=== PATIENT | female | born 1945 | race Caucasian/White ===

== ENCOUNTER 2017-05-09 09:52 | Inpatient (IN) | payer MEDICARE, BC ==
[2017-05-09] VITALS (8 sets, daily range): BP systolic 136–178; BP diastolic 72–98
[~2017-05-09] VITALS: Ht 160 cm; Wt 103.1 kg
--- NOTE | ~2017-05-09 | CON ---
[place], [place] REPORT OF CONSULTATION NAME[id number] UNIT #: [id number] ROOM: 502 DOCTOR: EDWARD RODRÍGUEZ MD BIRTHDATE: [birth year] DOS: 05/10/2017 HISTORY OF PRESENT ILLNESS: A 72-year-old patient who presented with multiple issues among which was constipation and stool impaction. The patient has been taking oxycodone for pain management q.i.d. This is the remedy for her pain management of left hip open reduction fracture issues that has been addressed in the recent past. The patient has been nauseated as well. The patient was digitally disimpacted and since this morning she has had 2 bowel movements. However, a panel of blood work was done. Lactic acid 1.3. CBC: White blood cell 10, H and H of 13 and 40. Comprehensive metabolic panel, hypokalemia was addressed. Liver function test, alkaline phosphatase of 155, BMP of 2300 was noticed. INR of 1.1. Chest x-ray, no pneumonia. CT scan of the abdomen, nonspecific inflammation suggestive of colitis of mild degree in colon. CBC differential, white blood cell 12 again, platelets 520. Comprehensive metabolic again was reassessed. Potassium of 3.2 has been addressed. PAST MEDICAL HISTORY: Associated with left hip fracture, breast CA, psoriasis, congestive heart failure, ETOH dependency of drinking 6 beers per day at least at a soft confession. PAST SURGICAL HISTORY: Cholecystectomy, tonsillectomy, hip fracture and repair. SOCIAL HISTORY: Stopped smoking 20 years ago; however, drinking at least 6 beers per day. FAMILY HISTORY: Noncontributory. ALLERGIES: To no known medications. MEDICATIONS: Medication list has been reviewed, thiamine, folic acid, lisinopril, Coreg 3.125 mg p.o. b.i.d. REVIEW OF SYSTEMS: HEENT: Denies double vision, blurred vision. RESPIRATORY: Denies shortness of breath. CARDIOVASCULAR: Denies chest pain. DIGESTIVE SYSTEM: As identified above, nausea at the present time constipation. PHYSICAL EXAMINATION: VITAL SIGNS: Stable, comfortable, with some nausea. HEENT: Head normocephalic, nontraumatic. Mouth and buccal mucosa benign. NECK: Supple, no thyromegaly. CHEST: Symmetric anatomy, equal expansion. No wheeze. No rhonchi. HEART: Normal sinus rhythm, no gallop, no murmur. ABDOMEN: Soft, no hepato-organomegaly. Nonspecific tenderness. Bowel sounds present. EXTREMITIES: No cyanosis, no pedal edema. NEUROLOGIC: Alert, oriented to time, place and person. IMPRESSION: [place], [place] REPORT OF CONSULTATION NAME: MARCELA ZUNIGA UNIT #: [id number] ROOM: 502 DOCTOR: EDWARD RODRÍGUEZ MD BIRTHDATE: [birth year] 1. Constipation secondary to excessive oxycodone, which she is taking for pain management of hip fracture and repair. 2. Elevation of alkaline phosphatase, most likely secondary to excessive ETOH consumption daily. Other adjunctive diagnoses: Hypokalemia that has been addressed. Nausea which is going to be addressed with dose of Reglan. She has been receiving Phenergan, a dose of Reglan is going to be given. Congestive heart failure, which is under monitor. History of breast CA and psoriasis which is known and has been addressed. PLAN AND DISCUSSION: PPI is going to be on board and I have told her that we owe her a colonoscopy when she is in frame of mind to have it done and that would be complimented in addition to the endoscopy for her issues of epigastric distress, nausea. PLAN AND DISCUSSION: Otherwise supportive management and if she responds to Reglan and if she tolerates without side effects, then we will chose a regimen for management. EDWARD RODRÍGUEZ MD CM:CONSTR:REPORT OF CONSULTATION 1646 05/11/17 0552 interface
[~2017-05-09 09:52] MED LIST: B-1100 M1 PO; BENADRYL ALLERG25 M5 PO; BIAXIN500 MG PO; COREG CR10 MG PO; COREG3.125 MG PO; DIPHENHYDRAM50 MG/M1 PO; KCL PO; LASIX20 MG PO; LISINOPRIL5 MG PO; MACROBID100 M1 PO; MEDROL DOSEPAK4 MG PO; MOTRIN800 MG PO; NATURE'S BLEND F1 MG PO; NORCO 10-325 T1 EACH PO; PHENERGAN25 M3 PO; POTASSIUM CHLO20 ME4 PO; VITAMIN B-11 TAB PO; ZESTRIL,PRINIVIL5 MG PO
[2017-05-09 10:38] LABS: BASO # 0.1 10*3/uL (0.0-0.1); BASO % 0.7 % (0.0-1.0); EOS # 0.1 10*3/uL (0.0-0.4); EOS % 1.1 % (1.0-4.0); HEMATOCRIT 41.4 % (37.0-47.0); HEMOGLOBIN 13.6 g/dl (12.0-16.0); LYMPH # 1.5 10*3/uL (1.3-4.4); LYMPH % 14.8 % (27.0-41.0); MEAN CELL VOLUME 92.8 fl (81.0-99.0); MEAN CORPUSCULAR HGB 30.5 pg (27.0-31.0); MEAN CORPUSCULAR HGB CONC 32.9 g/dl (33.0-37.0); MEAN PLATELET VOLUME 9.7 fl (9.6-12.3); MONO # 0.8 10*3/uL (0.1-1.0); MONO % 7.9 % (3.0-9.0); NEUT # 7.6 10*3/uL (2.3-7.9); NEUT % 75.1 % (47.0-73.0); PLATELET COUNT AUTOMATED 531 10*3/uL (130-400); RED BLOOD COUNT 4.46 10*6/uL (4.10-5.10); RED CELL DISTRI WIDTH 12.5 % (0-14.5); WHITE BLOOD COUNT 10.1 10*3/uL (4.8-10.8)
[2017-05-09 10:49] LABS: ACT PARTIAL THROMBO TIME 24.6 SECONDS (20.8-31.5); INTERNATIONAL NORM RATIO 1.1 (2.0-3.5)
[2017-05-09 10:53] LABS: ALBUMIN 3.5 gm/dl (3.1-4.5); ALKALINE PHOSPHATASE 155 U/L (45-117); BUN 8 mg/dl (7-24); CHLORIDE 103 mmol/L (98-107); CKMB 0.7 ng/ml (0.5-3.6); CPK 39 U/L (26-192); CREATININE 0.63 mg/dL (0.55-1.02); LIPASE 129 U/L (73-393); MAGNESIUM 1.9 mg/dL (1.5-2.1); POTASSIUM 3.4 mmol/L (3.5-5.1); SGOT/AST 18 IU/L (3-35); SGPT/ALT 20 U/L (12-78); SODIUM 137 mmol/L (136-145)
[2017-05-09 10:55] LABS: TROPONIN I < 0.015 ng/ml (<0.045)
--- NOTE | 2017-05-09 11:26 | NUR ---
PATIENT REFUSED PERCOCET PER DR RUSSELL. DOCUMENTED IN EMAR SUCH.
--- NOTE | 2017-05-09 12:45 | NUR ---
PATIENT ASSISTED TO BEDSIDE COMMODE AT THIS TIME.
--- NOTE | 2017-05-09 12:55 | NUR ---
PATIENT THRASHING AROUND THE BED STATING SHE IS HAVING SEVERE PAIN, MADE DR. RUSSELL AWARE OF THIS SITUATION. ANNA WEI
--- NOTE | 2017-05-09 13:30 | NUR ---
PATIENT CONTINUES TO NOT BE ABLE TO MOVE HER BOWELS, PATIENT STATES THAT SHE FEELS IF SHE NEEDS TO MOVE HER BOWELS BUT IS NOT ABLE TO DO SO, STATES THAT SHE JUST FEELS LIKE SHE HAS A LOT OF PRESSURE IN HER RECTUM AND HAS A BURNING SENSATION IN HER RECTU, SKIN IS PINK, WARM, AND DRY, RESPIRATIONS ARE EASY AND NONLABORED, CALL LIGHT IN REACH OF THE PATIENT, CONTINUING TO MONITOR THE PATIENT. ANNA WEI
--- NOTE | 2017-05-09 14:20 | NUR ---
PATIENT STATES THAT SHE HAS HAD SIGNIFICANT IMPROVEMENT IN HER PAIN AT THIS TIME, STATES THAT THE PAIN COMES AND GOES, STATES THAT THE MOMENT HER PAIN IS A 7/10, SKIN IS PINK, WARM, AND DRY, RESPIRATIONS ARE EASY AND NONLABORED, PATIENT IS RESTING IN BED, CALL LIGHT IN REACH OF THE PATIENT, CONTINUING TO MONITOR THE PATIENT. ANNA WEI
--- NOTE | 2017-05-09 14:50 | NUR ---
PATIENT STILL HAS BEEN UNABLE TO MOVE HER BOWELS AND HAVE A GOOD BOWEL MOVEMENT, PATIENT HAS CONSTANT DRAINAGE OF LIGHT BROWN STOOL. ANNA SIERRA
--- NOTE | 2017-05-09 15:40 | NUR ---
Time: 1539 A 72 year old FEMALE admitted to 5E under services of MAYANK CREWS DO, Pt. arrived via bed from ER. Chief complaint: CONSTIPATION. MARISABEL DUNN
--- NOTE | 2017-05-09 15:41 | NUR ---
PATIENT TAKEN TO ROOM 502-2 BY EPHRAIM SCHMID. ERIBERTORN
--- NOTE | 2017-05-09 20:05 | NUR ---
MEDICATED WITH PRN TYLENOL ORDERED FOR C/O A HEADACHE
[2017-05-09] MEDS ORDERED: CALCIUM 500 +1 EAC1 PO (20:09)
[2017-05-09] MEDS ORDERED: PEPCID20 MG PO (20:10)
[2017-05-09] MEDS ORDERED: ZOFRAN4 MG PO (20:11)
[2017-05-09] MEDS ORDERED: ZINC-220220 MG PO (20:11)
[2017-05-09] MEDS ORDERED: VITAMIN D5000 UNIT PO (20:12)
--- NOTE | 2017-05-09 20:12 | NUR ---
MED REC UPDATED VIA LIST FROM PHARMACY
--- NOTE | 2017-05-09 20:30 | NUR ---
RESTING IN BED. RESPIRATIONS EASY. LUNGS DIMINISHED, CLEAR. PULSE OX 99% RA. ABD SOFT WITH HYPOACTIVE BOWEL SOUNDS. PATIENT C/O RECTAL SORENESS AND BURNING, CREAM APPLIED. IV FLUIDS INFUSING PER ORDER. CALL LIGHT WITHIN REACH.
--- NOTE | 2017-05-09 21:15 | NUR ---
PATIENT ATTEMPTING TO MOVE HER BOWELS, ASSISTED TO AND FROM BSC MULTIPLE TIMES. MINIMAL RESULTS FROM EARLIER LAXATIVES. MAG CITRATE REMAINS ON BEDSIDE TABLE. PATIENT ENCOURAGED TO DRINK TO WHICH SHE REPLIES "I KNOW, I WILL." WILL MONITOR
--- NOTE | 2017-05-09 22:50 | NUR ---
PATIENT HAS YET TO DRINK MAG CITRATE. PATIENT ENCOURAGED TO WHICH SHE STATES THAT SHE IS NAUSEOUS. MEDICATED WITH ZOFRAN IV TO ASSIST WITH NAUSEA. ALSO RECEIVED RESTORIL AT THIS TIME TO ASSIST WITH SLEEP
--- NOTE | 2017-05-09 23:15 | NUR ---
PATIENT INCONT OF SMALL AMOUNT BROWN LIQUID STOOL. PATIENT AND LINENS CHANGED. BRIEF PLACED AT PATIENT REQUEST
--- NOTE | 2017-05-09 23:30 | NUR ---
PATIENT REFUSING TO DRINK MAG CITRATE. EDUCATED REGARDING IMPORTANCE OF CONSUMING LAXATIVE D/T CT FINDINGS. CONTINUES TO REFUSE STATING THAT SHE IS NAUSEOUS DESPITE EARLIER ZOFRAN
[2017-05-10] VITALS: BP 158/78
--- NOTE | 2017-05-10 00:30 | NUR ---
EARLIER MEDS APPEAR EFFECTIVE. RETING WITH EYES CLOSED. RESPIRATIONS EASY. VSS. IV FLUIDS MAINTAINED. CALL LIGHT WITHIN REACH
--- NOTE | 2017-05-10 06:00 | NUR ---
SLEPT THROUGHOUT NIGHT. AWAKE THIS AM, ASSISTED TO BSC. PATIENT HAVING LIQUID STOOLS, NO FORMED STOOL. PATIENT C/O PRESSURE. MAG CITRATE REMAINS AT BEDSIDE BUT PATIENT REFUSING TO DRINK. IV FLUIDS MAINTAINED. CALL LIGHT WITHIN REACH
--- NOTE | 2017-05-10 06:00 | NUR ---
PATIENT C/O RECTUM BEING "SORE" AND "BURNING". WOULD SHE BENEFIT FROM CALAZINE CREAM?
--- NOTE | 2017-05-10 06:25 | NUR ---
PATIENT C/O NAUSEA. 20 CC EMESIS YELLOW BILE NOTED. MEDICATED WITH ZOFRAN PER PRN ORDER. WILL MONITOR
[2017-05-10 07:13] LABS: BASO # 0.1 10*3/uL (0.0-0.1); BASO % 0.4 % (0.0-1.0); EOS # 0.1 10*3/uL (0.0-0.4); EOS % 0.7 % (1.0-4.0); HEMATOCRIT 40.2 % (37.0-47.0); HEMOGLOBIN 13.3 g/dl (12.0-16.0); MEAN CELL VOLUME 91.6 fl (81.0-99.0); MEAN CORPUSCULAR HGB 30.3 pg (27.0-31.0); MEAN CORPUSCULAR HGB CONC 33.1 g/dl (33.0-37.0); MONO % 8.3 % (3.0-9.0); NEUT # 9.2 10*3/uL (2.3-7.9); NEUT % 74.2 % (47.0-73.0); PLATELET COUNT AUTOMATED 525 10*3/uL (130-400); RED BLOOD COUNT 4.39 10*6/uL (4.10-5.10); RED CELL DISTRI WIDTH 12.6 % (0-14.5); WHITE BLOOD COUNT 12.4 10*3/uL (4.8-10.8)
--- NOTE | 2017-05-10 07:30 | NUR ---
assumed care of pt at this time, pt sitting up in bed alert and oriented no s/s of distress call light with in reach
[2017-05-10 07:34] LABS: ALBUMIN 3.1 gm/dl (3.1-4.5); ALKALINE PHOSPHATASE 127 U/L (45-117); CHLORIDE 106 mmol/L (98-107); MAGNESIUM 2.1 mg/dL (1.5-2.1); PHOSPHOROUS 2.9 mg/dL (2.5-4.9); POTASSIUM 3.2 mmol/L (3.5-5.1); SGOT/AST 14 IU/L (3-35); SGPT/ALT 15 U/L (12-78); SODIUM 136 mmol/L (136-145)
[2017-05-10 07:37] LABS: BUN 8 mg/dl (7-24); TOTAL PROTEIN 6.9 gm/dL (6.4-8.2)
[2017-05-10 07:51] LABS: ACT PARTIAL THROMBO TIME 25.2 SECONDS (20.8-31.5); INTERNATIONAL NORM RATIO 1.1 (2.0-3.5)
[2017-05-10 08:00] VITALS: BP 184/90
--- NOTE | 2017-05-10 10:00 | NUR ---
CALL PLACED TO DR RODRÍGUEZ FOR CONSULT PER ORDER FROM DR RUSSELL, DR RODRÍGUEZ STATES THAT A DIGITAL EXAM NEEDS PREFORMED AND IF IMPACTED TO REMOVE, UPDATED DR RUSSELL, AND ASSISTED DR RUSSELL WITH REMOVING IMPACTED STOOL, DR RUSSELL REMOVED LG AMOUNT OF STOOL PT TOLERATES WELL.
--- NOTE | 2017-05-10 10:34 | NUR ---
ADMINISTERED PHENERGAN PER 0RDERS FOR NAUSEA/VOMITING, WILL MONITOR EFFECTS
--- NOTE | 2017-05-10 11:34 | NUR ---
PT RESTING IN BED WITH EYES CLOSED NO FURTHER VOMITING NOTED, PT STATES THAT SHE STILL FEELS A LITTLE NAUSEOUS
[2017-05-10 12:00] VITALS: BP 166/80
[2017-05-10 16:00] VITALS: BP 189/98
--- NOTE | 2017-05-10 16:51 | NUR ---
IV started right forearm with #24 angiocath after 2 attempts. The IV site was prepped with Chloraprep. Heparin lock attached. Sterile dressing applied. Patient tolerated precedure well. Procedure performed according to [facility] policy & procedure. DOLLY LUZ
--- NOTE | 2017-05-10 16:54 | NUR ---
DR RODRÍGUEZ HERE TO SEE PT. DTR HERE AT BEDSIDE
[2017-05-10 18:00] VITALS: BP 168/72
--- NOTE | 2017-05-10 20:30 | NUR ---
PT REQUESTED PRN SLEEPING PILL, AND WAS GIVEN COREG WITH SLEEPING PILL TO NOT DISTURB LATER AT 10 REQUESTED PER PT.
--- NOTE | 2017-05-10 20:57 | NUR ---
RESTING IN BED WITH EYES CLOSED. RESPIRATIONS EASY. LUNGS DIMINISHED, CLEAR. PULSE OX 99% RA. ABD SOFT WITH HYPOACTIVE BOWEL SOUNDS. MEDICATED WITH ZOFRAN IV PER PRN ORDER FOR C/O NAUSEA. IV FLUIDS INFUSING PER ORDER. CALL LIGHT WITHIN REACH. WILL MONITOR
--- NOTE | 2017-05-10 22:00 | NUR ---
PT SLEEPING. SLEEPING PILL AFFECTIVE. WILL CONTINUE TO MONITOR.
--- NOTE | 2017-05-10 23:00 | NUR ---
MEDS APPEAR EFFECTIVE. SLEEPING. RESPIRATIONS EASY. IV FLUIDS MAINTAINED. CALL LIGHT WITHIN REACH
[2017-05-11] VITALS: BP 160/90
--- NOTE | 2017-05-11 01:30 | NUR ---
PT SLEEPING. WILL CONTINUE TO MONITOR.
--- NOTE | 2017-05-11 06:00 | NUR ---
SLEPT THROUGHOUT NIGHT WITH NO DISTRESS NOTED. RESPIRATIONS EASY. IV FLUIDS MAINTAINED. CALL LIGHT WITHIN REACH. NO VOICED COMPLAINTS THIS SHIFT
[2017-05-11 06:06] LABS: BASO # 0.1 10*3/uL (0.0-0.1); BASO % 0.4 % (0.0-1.0); EOS # 0.1 10*3/uL (0.0-0.4); EOS % 0.8 % (1.0-4.0); HEMATOCRIT 39.4 % (37.0-47.0); HEMOGLOBIN 13.1 g/dl (12.0-16.0); LYMPH # 1.5 10*3/uL (1.3-4.4); LYMPH % 11.5 % (27.0-41.0); MEAN CELL VOLUME 90.8 fl (81.0-99.0); MEAN CORPUSCULAR HGB 30.2 pg (27.0-31.0); MEAN CORPUSCULAR HGB CONC 33.2 g/dl (33.0-37.0); MEAN PLATELET VOLUME 10.1 fl (9.6-12.3); MONO # 1.2 10*3/uL (0.1-1.0); MONO % 8.8 % (3.0-9.0); NEUT # 10.3 10*3/uL (2.3-7.9); NEUT % 77.9 % (47.0-73.0); PLATELET COUNT AUTOMATED 533 10*3/uL (130-400); RED BLOOD COUNT 4.34 10*6/uL (4.10-5.10); RED CELL DISTRI WIDTH 12.5 % (0-14.5); WHITE BLOOD COUNT 13.2 10*3/uL (4.8-10.8)
[2017-05-11 06:11] LABS: BUN 5 mg/dl (7-24); CHLORIDE 98 mmol/L (98-107); CREATININE 0.44 mg/dL (0.55-1.02); MAGNESIUM 1.7 mg/dL (1.5-2.1); PHOSPHOROUS 1.7 mg/dL (2.5-4.9); POTASSIUM 2.8 mmol/L (3.5-5.1); SODIUM 132 mmol/L (136-145)
--- NOTE | 2017-05-11 06:50 | NUR ---
K 2.8. PATIENT HAS NOT TOLERATED ORAL K OR K-RUN THAT PAST [address] LORA CONTACTED, NEW ORDERS RECEIVED
[2017-05-11 08:00] VITALS: BP 178/90
[2017-05-11 12:00] VITALS: BP 180/94
--- NOTE | 2017-05-11 12:00 | NUR ---
ATTEMPTED TO ADMINISTER PO POTASSIUM PATIENT STATES SHE CAN NOT TOLERATE THEM. CUT PILLS INTO /, PATIENT STATES SHE WILL TAKE THEM AT HER PACE. STATES "I DOUBT I CAN TAKE THEM AT ALL" CONTINUED TO ENCOURAGE TO TAKE THESE PILLS AND THE IMPORTANCE OF POTASSIUM LEVEL.
--- NOTE | 2017-05-11 14:30 | NUR ---
PATIENT WAS GIVEN MAG CITRATE AND ENCOURAGED TO DRINK. PATIENT HAS NOT ATTEMPTED. STATES SHE CANT STAND THE DRINK AND IT MAKES HER SICK.
[2017-05-11 16:00] VITALS: BP 186/106
--- NOTE | 2017-05-11 18:55 | NUR ---
PATIENT STILL HAS NOT DRANK MAG CITRATE.
[2017-05-11 20:00] VITALS: BP 174/85
[2017-05-12] VITALS: BP 159/88
--- NOTE | 2017-05-12 00:55 | NUR ---
PATIENT MEDICATED WITH RESTORIL AT 0001 FOR COMPLAINTS OF INSOMNIA WITH EFFECTIVE RESULTS NOTED. RESTING IN BED WITH EYES CLOSED AT THIS TIME. NO SIGNS OR SYMPTOMS OF DISTRESS NOTED. WILL CONTINUE TO MONITOR. CALL LIGHT IN REACH.
[2017-05-12 06:34] LABS: BASO % 0.3 % (0.0-1.0); EOS # 0.2 10*3/uL (0.0-0.4); EOS % 1.3 % (1.0-4.0); HEMATOCRIT 42.2 % (37.0-47.0); HEMOGLOBIN 14.2 g/dl (12.0-16.0); LYMPH # 1.7 10*3/uL (1.3-4.4); MEAN CELL VOLUME 91.3 fl (81.0-99.0); MEAN CORPUSCULAR HGB 30.7 pg (27.0-31.0); MEAN CORPUSCULAR HGB CONC 33.6 g/dl (33.0-37.0); MEAN PLATELET VOLUME 9.9 fl (9.6-12.3); MONO # 1.4 10*3/uL (0.1-1.0); MONO % 11.4 % (3.0-9.0); NEUT # 9.3 10*3/uL (2.3-7.9); NEUT % 73.4 % (47.0-73.0); PLATELET COUNT AUTOMATED 559 10*3/uL (130-400); RED BLOOD COUNT 4.62 10*6/uL (4.10-5.10); RED CELL DISTRI WIDTH 12.4 % (0-14.5); WHITE BLOOD COUNT 12.7 10*3/uL (4.8-10.8)
[2017-05-12 07:06] LABS: BUN 3 mg/dl (7-24); CHLORIDE 95 mmol/L (98-107); CREATININE 0.48 mg/dL (0.55-1.02); PHOSPHOROUS 1.9 mg/dL (2.5-4.9); POTASSIUM 3.5 mmol/L (3.5-5.1); SODIUM 130 mmol/L (136-145)
[2017-05-12 08:00] VITALS: BP 154/97
--- NOTE | 2017-05-12 08:30 | NUR ---
[employer] in to talk to patient. Patient states lives at [address] with HER . There are 13 steps in the home. Physician: DR NORTH IN [place] Pharmacy: [facility] IN [facility] Home health services: NONE Patient's level of ADLs: INDEPENDENT Patient has working utilities: YES DME: [facility] Follow-up physician's appointment after d/c: WILL BE MADE PRIOR TO DC Does patient want to access PORTAL?: Discharge plan HOME. MYRTLE VELASQUEZ
[2017-05-12 09:41] LABS: BILIRUBIN NEGATIVE (NEGATIVE); BLOOD TRACE-LYSED (NEGATIVE); CLARITY CLEAR (CLEAR); COLOR YELLOW (YELLOW); GLUCOSE NEGATIVE (NEGATIVE); KETONE 1+ (NEGATIVE); LEUKO ESTERASE NEGATIVE (NEGATIVE); NITRITE NEGATIVE (NEGATIVE); PH 5.5 (5.0-9.0); SPECIFIC GRAVITY 1.015 (1.005-1.030); UROBILINOGEN 0.2 E.U./dl (0.2-1.0)
[2017-05-12 09:50] LABS: BACTERIA TRACE; EPITHELIAL CELLS 31-40
[2017-05-12] MEDS ORDERED: CARVEDILOL6.25 MG PO (10:48)
[2017-05-12] MEDS ORDERED: FLAGYL500 MG PO (10:50)
[2017-05-12] MEDS ORDERED: CONSTULOSE10 GM/151 PO (10:50)
[2017-05-12] MEDS ORDERED: CIPRO500 MG PO (10:50)
--- NOTE | 2017-05-12 11:30 | NUR ---
Discharge instructions reviewed with patient/family. Patient receptive and verbalizes understanding. Follow-up care arranged. Written instructions given to patient/family. MICHAEL ANTONIO
== END 2017-05-12 11:30 | disposition home or self-care (01) | DRG 372 ==
LOC: ED 09:52 → EDHOLD 14:35 → 5E 14:35
PROVIDERS: Emergency Medicine; Family Medicine; ADMIT Internal Medicine
DX: A04.9 Bacterial intestinal infection, unspecified (principal); I50.22 Chronic systolic (congestive) heart failure; C50.911 Malignant neoplasm of unspecified site of right female breast; I11.0 Hypertensive heart disease with heart failure; E87.1 Hypo-osmolality and hyponatremia; E87.6 Hypokalemia; T40.2X5A Adverse effect of other opioids, initial encounter; K44.9 Diaphragmatic hernia without obstruction or gangrene; K59.00 Constipation, unspecified; F10.20 Alcohol dependence, uncomplicated; L40.9 Psoriasis, unspecified; Z79.899 Other long term (current) drug therapy; Z87.440 Personal history of urinary (tract) infections; Z90.49 Acquired absence of other specified parts of digestive tract; Z87.891 Personal history of nicotine dependence; Z72.89 Other problems related to lifestyle; Z81.8 Family history of other mental and behavioral disorders; Z80.1 Family history of malignant neoplasm of trachea, bronchus and lung; Z87.81 Personal history of (healed) traumatic fracture

== ENCOUNTER → 2017-06-12 | Outpatient (CLI) | payer MEDICARE, BC ==
[~2017-06-12] MED LIST changes: +CALCIUM 500 +1 EAC1 PO; +CARVEDILOL6.25 MG PO; +CIPRO500 MG PO; +CONSTULOSE10 GM/151 PO; +FLAGYL500 MG PO; +PEPCID20 MG PO; +VITAMIN D5000 UNIT PO; +ZINC-220220 MG PO; +ZOFRAN4 MG PO
[2017-06-12 16:50] LABS: ALBUMIN 3.1 gm/dl (3.1-4.5); ALKALINE PHOSPHATASE 149 U/L (45-117); BUN 5 mg/dl (7-24); CHLORIDE 101 mmol/L (98-107); CREATININE 0.65 mg/dL (0.55-1.02); POTASSIUM 4.6 mmol/L (3.5-5.1); SGOT/AST 17 IU/L (3-35); SGPT/ALT 19 U/L (12-78); SODIUM 135 mmol/L (136-145); TOTAL PROTEIN 7.2 gm/dL (6.4-8.2)
== END | disposition home or self-care (01) ==
LOC: LAB 16:01
PROVIDERS: Internal Medicine
DX: E87.1 Hypo-osmolality and hyponatremia (principal); K59.03 Drug induced constipation

== ENCOUNTER → 2017-10-15 | Outpatient (CLI) | payer MEDICARE, BC ==
[2017-10-15 13:10] LABS: BUN 4 mg/dl (7-24); CHLORIDE 98 mmol/L (98-107); CHOLESTEROL 336 mg/dL (<200); CREATININE 0.58 mg/dL (0.55-1.02); HDL CHOLESTEROL 117 mg/dl (40-60); LDL CHOLESTEROL 189 mg/dL (9-159); POTASSIUM 4.2 mmol/L (3.5-5.1); SODIUM 133 mmol/L (136-145); TRIGLYCERIDES 149 mg/dl (<150); VLDL CHOLESTEROL 30 mg/dL (6-40)
== END | disposition home or self-care (01) ==
LOC: LAB 12:10
PROVIDERS: Specialist
DX: I50.22 Chronic systolic (congestive) heart failure (principal)

== ENCOUNTER → 2018-04-06 | Outpatient (CLI) | payer MEDICARE, BC ==
[2018-04-06 13:03] LABS: ALBUMIN 3.8 gm/dl (3.1-4.5); BILIRUBIN, DIRECT 0.2 mg/dL (0.0-0.2)
== END | disposition home or self-care (01) ==
LOC: LAB 11:50
PROVIDERS: Specialist
DX: I50.9 Heart failure, unspecified (principal); E78.5 Hyperlipidemia, unspecified

== ENCOUNTER 2018-10-06 21:04 | Inpatient (IN) | payer MEDICARE, BC ==
[~2018-10-06] VITALS: Ht 160 cm; Wt 60.4 kg
--- NOTE | ~2018-10-06 | EKG ---
[place], [place] ELECTROCARDIOGRAM REPORT NAME: MARCELA ZUNIGA UNIT #: [id number] ROOM: 502 DOCTOR: EPIPHANY DRAFT REPORT BIRTHDATE: [birth year] [facility] Test Date: 2018-10-06 Test Time: 21:32:13 Pat Name: MARCELA ZUNIGA Department: ER Room: 502 Gender: F [employer] Operator: Kathy Andersen : 1945 Requested By: VANESSA BRAUN Order Number: [id number] Reading MD: Cornell Posada MD Measurements Intervals [place] Rate: 82 P: 42 MD: 198 QRS: -47 QRSD: 125 T: 78 QT: 431 QTc: 504 Interpretive Statements Sinus arrhythmia Left bundle branch block Electronically Signed On 10-07-2018 17:24:35 PST by Cornell Posada MD CM:EKGRPT:ELECTROCARDIOGRAM REPORT 31 1724 VANESSA BRAUN MD EPIPHANY DRAFT REPORT VANESSA BRAUN MD
[2018-10-06 21:06] VITALS: BP 184/105
[2018-10-06 21:52] LABS: BASO # 0.1 10*3/uL (0.0-0.1); BASO % 0.4 % (0.0-1.0); EOS # 0.1 10*3/uL (0.0-0.4); EOS % 0.3 % (1.0-4.0); HEMATOCRIT 37.8 % (37.0-47.0); HEMOGLOBIN 13.5 g/dl (12.0-16.0); LYMPH # 1.4 10*3/uL (1.3-4.4); LYMPH % 7.7 % (27.0-41.0); MEAN CELL VOLUME 91.7 fl (81.0-99.0); MEAN CORPUSCULAR HGB 32.8 pg (27.0-31.0); MEAN CORPUSCULAR HGB CONC 35.7 g/dl (33.0-37.0); MEAN PLATELET VOLUME 8.9 fl (9.6-12.3); MONO # 1.1 10*3/uL (0.1-1.0); MONO % 6.1 % (3.0-9.0); NEUT # 15.2 10*3/uL (2.3-7.9); NEUT % 84.9 % (47.0-73.0); PLATELET COUNT AUTOMATED 347 10*3/uL (130-400); RED BLOOD COUNT 4.12 10*6/uL (4.10-5.10); RED CELL DISTRI WIDTH 11.5 % (0-14.5)
[2018-10-06 22:07] LABS: ALKALINE PHOSPHATASE 64 U/L (45-117); BUN 10 mg/dl (7-24); CHLORIDE 98 mmol/L (98-107); CREATININE 0.76 mg/dL (0.55-1.02); LIPASE 88 U/L (73-393); POTASSIUM 3.7 mmol/L (3.5-5.1); SGOT/AST 19 IU/L (3-35); SGPT/ALT 24 U/L (12-78); SODIUM 132 mmol/L (136-145); TOTAL PROTEIN 8.1 gm/dL (6.4-8.2)
[2018-10-06 22:08] LABS: TROPONIN I < 0.015 ng/ml (<0.045)
[2018-10-06 22:17] LABS: ACT PARTIAL THROMBO TIME 23.1 SECONDS (20.8-31.5)
[2018-10-07] VITALS (10 sets, daily range): BP systolic 137–166; BP diastolic 67–88
[2018-10-07 00:53] LABS: BILIRUBIN NEGATIVE (NEGATIVE); BLOOD NEGATIVE (NEGATIVE); CLARITY CLEAR (CLEAR); COLOR YELLOW (YELLOW); GLUCOSE 1+ (NEGATIVE); KETONE 1+ (NEGATIVE); LEUKO ESTERASE TRACE (NEGATIVE); NITRITE NEGATIVE (NEGATIVE); UROBILINOGEN 0.2 E.U./dl (0.2-1.0)
[2018-10-07 01:08] LABS: BACTERIA TRACE
[2018-10-07 05:59] LABS: ALBUMIN 3.4 gm/dl (3.1-4.5); ALKALINE PHOSPHATASE 58 U/L (45-117); BUN 7 mg/dl (7-24); CHLORIDE 101 mmol/L (98-107); CHOLESTEROL 236 mg/dL (<200); CREATININE 0.65 mg/dL (0.55-1.02); FREE T4 1.14 ng/dl (0.76-1.46); HDL CHOLESTEROL 113 mg/dl (40-60); LDL CHOLESTEROL 109 mg/dL (9-159); PHOSPHOROUS 3.1 mg/dL (2.5-4.9); POTASSIUM 3.8 mmol/L (3.5-5.1); SGOT/AST 15 IU/L (3-35); SGPT/ALT 19 U/L (12-78); SODIUM 134 mmol/L (136-145); TOTAL PROTEIN 7.3 gm/dL (6.4-8.2); TRIGLYCERIDES 68 mg/dl (<150); VLDL CHOLESTEROL 14 mg/dL (6-40)
[2018-10-07 06:34] LABS: BASO # 0.1 10*3/uL (0.0-0.1); BASO % 0.3 % (0.0-1.0); HEMATOCRIT 38.5 % (37.0-47.0); HEMOGLOBIN 12.8 g/dl (12.0-16.0); LYMPH # 0.6 10*3/uL (1.3-4.4); LYMPH % 3.1 % (27.0-41.0); MEAN CORPUSCULAR HGB 31.8 pg (27.0-31.0); MEAN CORPUSCULAR HGB CONC 33.2 g/dl (33.0-37.0); MEAN PLATELET VOLUME 9.5 fl (9.6-12.3); MONO # 1.5 10*3/uL (0.1-1.0); MONO % 7.4 % (3.0-9.0); NEUT # 17.5 10*3/uL (2.3-7.9); NEUT % 88.7 % (47.0-73.0); PLATELET COUNT AUTOMATED 327 10*3/uL (130-400); RED BLOOD COUNT 4.03 10*6/uL (4.10-5.10); RED CELL DISTRI WIDTH 11.7 % (0-14.5); WHITE BLOOD COUNT 19.7 10*3/uL (4.8-10.8)
[2018-10-07 06:40] LABS: MEAN CELL VOLUME 95.5 fl (81.0-99.0)
[2018-10-07] MEDS ORDERED: PRAVASTATIN SOD10 MG PO (11:43)
[2018-10-08] VITALS: BP 157/87
[2018-10-08 08:00] VITALS: BP 152/82
[2018-10-08 08:42] LABS: HEMATOCRIT 38.9 % (37.0-47.0); HEMOGLOBIN 13.3 g/dl (12.0-16.0); MEAN CELL VOLUME 95.6 fl (81.0-99.0); MEAN CORPUSCULAR HGB 32.7 pg (27.0-31.0); MEAN CORPUSCULAR HGB CONC 34.2 g/dl (33.0-37.0); MEAN PLATELET VOLUME 9.5 fl (9.6-12.3); PLATELET COUNT AUTOMATED 303 10*3/uL (130-400); RED BLOOD COUNT 4.07 10*6/uL (4.10-5.10); RED CELL DISTRI WIDTH 11.8 % (0-14.5); WHITE BLOOD COUNT 18.2 10*3/uL (4.8-10.8)
[2018-10-08 09:06] LABS: PLATELET SUFFICIENCY NORMAL (NORMAL); TOTAL CELLS COUNTED 100 #CELLS
[2018-10-08 09:31] LABS: BUN 9 mg/dl (7-24); CHLORIDE 101 mmol/L (98-107); CREATININE 0.88 mg/dL (0.55-1.02); POTASSIUM 3.7 mmol/L (3.5-5.1); SODIUM 132 mmol/L (136-145)
[2018-10-08 12:00] VITALS: BP 160/50
[2018-10-08] MEDS ORDERED: NORCO 5-325 TA1 EACH PO (13:58)
[2018-10-08] MEDS ORDERED: AUGMENTIN 875875 MG PO (14:02)
== END 2018-10-08 15:30 | disposition home or self-care (01) | DRG 854 ==
LOC: ED 21:04 → 5E 10-07 01:19 → EDHOLD 10-07 01:19 → 5E 10-07 08:09
PROVIDERS: Emergency Medicine Emergency Medical Services; Family Medicine; Internal Medicine; ADMIT Internal Medicine
DX: A41.9 Sepsis, unspecified organism (principal); K35.80 Unspecified acute appendicitis; I50.22 Chronic systolic (congestive) heart failure; E87.1 Hypo-osmolality and hyponatremia; R73.9 Hyperglycemia, unspecified; R81 Glycosuria; R82.4 Acetonuria; I11.0 Hypertensive heart disease with heart failure; K59.00 Constipation, unspecified; K42.9 Umbilical hernia without obstruction or gangrene; L40.9 Psoriasis, unspecified; K21.9 Gastro-esophageal reflux disease without esophagitis; E55.9 Vitamin D deficiency, unspecified; Z90.49 Acquired absence of other specified parts of digestive tract; Z85.3 Personal history of malignant neoplasm of breast; Z87.891 Personal history of nicotine dependence; Z80.1 Family history of malignant neoplasm of trachea, bronchus and lung; Z82.0 Family history of epilepsy and other diseases of the nervous system; Z79.899 Other long term (current) drug therapy

== ENCOUNTER → 2018-12-18 | Outpatient (CLI) | payer MEDICARE, BC ==
[~2018-12-18] MED LIST changes: +AUGMENTIN 875875 MG PO; +NORCO 5-325 TA1 EACH PO; +PRAVASTATIN SOD10 MG PO
[2018-12-18 15:46] LABS: ALBUMIN 3.7 gm/dl (3.1-4.5); ALKALINE PHOSPHATASE 67 U/L (45-117); BUN 8 mg/dl (7-24); CHLORIDE 99 mmol/L (98-107); CREATININE 0.63 mg/dL (0.55-1.02); POTASSIUM 4.4 mmol/L (3.5-5.1); SGOT/AST 21 IU/L (3-35); SGPT/ALT 22 U/L (12-78); SODIUM 133 mmol/L (136-145); TOTAL PROTEIN 7.4 gm/dL (6.4-8.2)
[2018-12-18 16:34] LABS: PTH INTACT 27.8 pg/mL (18.5-88.0); VITAMIN D, 25-HYDROXY 47.8 ng/mL (30-100)
[2018-12-19 05:04] LABS: TOTAL PROTEIN, SERUM 7.2 g/dL (6.0-8.5)
[2018-12-21 14:04] LABS: A/G RATIO 1.3 (0.7-1.7); ALPHA-1-GLOBULIN 0.2 g/dL (0.0-0.4); ALPHA-2-GLOBULIN 0.7 g/dL (0.4-1.0); GAMMA GLOBULIN 1.3 g/dL (0.4-1.8); GLOBULIN, TOTAL 3.2 g/dL (2.2-3.9); M-SPIKE Not Observed g/dL (Not Observed)
[2018-12-22 14:07] LABS: ALBUMIN, URINE 29.2 % (.); ALPHA-2-GLOBULIN, URINE 13.1 % (.); BETA GLOBULIN, URINE 40.6 % (.); GAMMA GLOBULIN, URINE 17.2 % (.); M-SPIKE, % Not Observed % (Not Observed)
== END | disposition home or self-care (01) ==
LOC: LAB 14:21
PROVIDERS: Internal Medicine Endocrinology, Diabetes & Metabolism
DX: M81.0 Age-related osteoporosis without current pathological fracture (principal); Z79.899 Other long term (current) drug therapy

== ENCOUNTER → 2019-04-27 | Outpatient (CLI) | payer MEDICARE, BC ==
[2019-04-27 13:35] LABS: ALBUMIN 3.9 gm/dl (3.1-4.5); BILIRUBIN, DIRECT 0.2 mg/dL (0.0-0.2)
== END | disposition home or self-care (01) ==
LOC: LAB 12:50
PROVIDERS: Specialist
DX: E78.5 Hyperlipidemia, unspecified (principal); I50.9 Heart failure, unspecified; Z79.899 Other long term (current) drug therapy

== ENCOUNTER 2019-06-26 18:48 | Emergency (ER) | payer MEDICARE, BC ==
[~2019-06-26] VITALS: Ht 160 cm; Wt 57.2 kg
== END 2019-06-26 21:00 | disposition home or self-care (01) ==
LOC: ED 18:48
DX: K59.00 Constipation, unspecified (principal); I50.9 Heart failure, unspecified; I11.0 Hypertensive heart disease with heart failure; Z79.899 Other long term (current) drug therapy; Z85.3 Personal history of malignant neoplasm of breast

== ENCOUNTER → 2020-03-30 | Outpatient (CLI) | payer MEDICARE, BC ==
[2020-03-30 13:15] LABS: BASO # 0.1 10*3/uL (0.0-0.1); BASO % 1.4 % (0.0-1.0); EOS # 0.2 10*3/uL (0.0-0.4); EOS % 3.6 % (1.0-4.0); HEMATOCRIT 39.6 % (37.0-47.0); LYMPH # 1.4 10*3/uL (1.3-4.4); LYMPH % 27.3 % (27.0-41.0); MEAN CELL VOLUME 93.2 fl (81.0-99.0); MEAN CORPUSCULAR HGB 31.8 pg (27.0-31.0); MEAN CORPUSCULAR HGB CONC 34.1 g/dl (33.0-37.0); MEAN PLATELET VOLUME 9.1 fl (9.6-12.3); MONO # 0.5 10*3/uL (0.1-1.0); MONO % 10.3 % (3.0-9.0); NEUT # 2.8 10*3/uL (2.3-7.9); PLATELET COUNT AUTOMATED 352 10*3/uL (130-400); RED BLOOD COUNT 4.25 10*6/uL (4.10-5.10); WHITE BLOOD COUNT 4.9 10*3/uL (4.8-10.8)
[2020-03-30 13:41] LABS: ALBUMIN 3.8 gm/dl (3.1-4.5); ALKALINE PHOSPHATASE 57 U/L (45-117); BUN 4 mg/dl (7-24); CHLORIDE 103 mmol/L (98-107); CHOLESTEROL 231 mg/dL (<200); CREATININE 0.61 mg/dL (0.55-1.02); HDL CHOLESTEROL 140 mg/dl (40-60); LDL CHOLESTEROL 69 mg/dL (9-159); POTASSIUM 3.9 mmol/L (3.5-5.1); SGOT/AST 19 IU/L (3-35); SGPT/ALT 24 U/L (12-78); SODIUM 133 mmol/L (136-145); TRIGLYCERIDES 109 mg/dl (<150); VLDL CHOLESTEROL 22 mg/dL (6-40)
== END | disposition home or self-care (01) ==
LOC: LAB 12:46
PROVIDERS: Specialist
DX: I50.22 Chronic systolic (congestive) heart failure (principal); R55 Syncope and collapse

== ENCOUNTER → 2020-04-11 | Outpatient (CLI) | payer MEDICARE, BC ==
[2020-04-11 16:59] LABS: BUN 5 mg/dl (7-24); CHLORIDE 103 mmol/L (98-107); CREATININE 0.67 mg/dL (0.55-1.02); POTASSIUM 4.2 mmol/L (3.5-5.1); SODIUM 133 mmol/L (136-145)
== END | disposition home or self-care (01) ==
LOC: LAB 16:11
PROVIDERS: Internal Medicine Endocrinology, Diabetes & Metabolism
DX: M81.0 Age-related osteoporosis without current pathological fracture (principal); E55.9 Vitamin D deficiency, unspecified

== ENCOUNTER 2020-07-23 00:47 | Emergency (ER) | payer MEDICARE, BC ==
[~2020-07-23] VITALS: Ht 160 cm; Wt 56.7 kg
[2020-07-23 01:12] LABS: BASO # 0.1 10*3/uL (0.0-0.1); BASO % 0.8 % (0.0-1.0); EOS # 0.2 10*3/uL (0.0-0.4); EOS % 1.4 % (1.0-4.0); HEMATOCRIT 36.1 % (37.0-47.0); LYMPH # 2.4 10*3/uL (1.3-4.4); LYMPH % 22.1 % (27.0-41.0); MEAN CELL VOLUME 91.9 fl (81.0-99.0); MEAN CORPUSCULAR HGB 30.8 pg (27.0-31.0); MEAN CORPUSCULAR HGB CONC 33.5 g/dl (33.0-37.0); MEAN PLATELET VOLUME 8.8 fl (9.6-12.3); MONO % 9.5 % (3.0-9.0); NEUT # 7.2 10*3/uL (2.3-7.9); NEUT % 65.7 % (47.0-73.0); PLATELET COUNT AUTOMATED 343 10*3/uL (130-400); RED BLOOD COUNT 3.93 10*6/uL (4.10-5.10); RED CELL DISTRI WIDTH 11.9 % (0-14.5); WHITE BLOOD COUNT 10.9 10*3/uL (4.8-10.8)
[2020-07-23 01:25] LABS: BUN 8 mg/dl (7-24); CHLORIDE 95 mmol/L (98-107); CREATININE 0.66 mg/dL (0.55-1.02); POTASSIUM 3.6 mmol/L (3.5-5.1); SODIUM 127 mmol/L (136-145)
== END 2020-07-23 08:42 | disposition home or self-care (01) ==
LOC: ED 00:47
PROVIDERS: Internal Medicine
DX: S00.83XA Contusion of other part of head, initial encounter (principal); E87.8 Other disorders of electrolyte and fluid balance, not elsewhere classified; F10.10 Alcohol abuse, uncomplicated; Z79.899 Other long term (current) drug therapy; Z87.891 Personal history of nicotine dependence; W18.39XA Other fall on same level, initial encounter; Y93.89 Activity, other specified; Y92.89 Other specified places as the place of occurrence of the external cause; Y90.9 Presence of alcohol in blood, level not specified; Y99.8 Other external cause status

== ENCOUNTER → 2022-03-13 | Outpatient (CLI) | payer MEDICARE, BC ==
[2022-03-13 12:12] LABS: ALKALINE PHOSPHATASE 57 U/L (45-117); BUN 9 mg/dl (7-24); CHLORIDE 101 mmol/L (98-107); CHOLESTEROL 218 mg/dL (<200); CREATININE 0.69 mg/dL (0.55-1.02); POTASSIUM 4.4 mmol/L (3.5-5.1); SGOT/AST 13 IU/L (3-35); SGPT/ALT 18 U/L (12-78); SODIUM 131 mmol/L (136-145); TOTAL PROTEIN 7.5 gm/dL (6.4-8.2); TRIGLYCERIDES 58 mg/dl (<150)
[2022-03-13 12:26] LABS: LDL CHOLESTEROL 51 mg/dL (9-159)
== END | disposition home or self-care (01) ==
LOC: LAB 11:35
PROVIDERS: ATTEND Internal Medicine Endocrinology, Diabetes & Metabolism
DX: E78.49 Other hyperlipidemia (principal); M81.0 Age-related osteoporosis without current pathological fracture; E55.9 Vitamin D deficiency, unspecified

== ENCOUNTER 2025-03-01 21:12 | Emergency (ER) | payer MEDICARE, BC ==
[~2025-03-01] VITALS: Ht 160 cm; Wt 57.2 kg
== END 2025-03-01 22:31 | disposition left against medical advice (07) ==
LOC: ED 21:12
DX: R10.9 Unspecified abdominal pain (principal); M54.9 Dorsalgia, unspecified; Z53.21 Procedure and treatment not carried out due to patient leaving prior to being seen by health care provider